=== PATIENT | male | born 1945 | race Caucasian/White ===

== ENCOUNTER 2021-04-20 13:13 | Inpatient (IN) | payer MEDICARE ==
[~2021-04-20] VITALS: Ht 170.2 cm; Wt 74.2 kg
[~2021-04-20 13:13] MED LIST: AEROECLIPSE II1 EACH NEB; ALDACTONE25 M1 PO; COREG12.5 MG PO; COUMADIN2.5 MG PO; DUONEB 2.5-0.5M1 AMP NEB; FLOMAX0.4 MG PO; GLUCOPHAGE500 MG PO; HCTZ25 MG PO; K-DUR20 MEQ PO; LACTINEX1 EACH PO; LEVAQUIN500 MG PO; NOVOLOG VI100 UNIT/1 SQ; PREDNISONE10 MG PO; PRINIVIL20 MG PO; PROTONIX 40MG T40 MG PO; ZOCOR20 MG PO
[2021-04-20 14:04] LABS: BASOPHIL 0.3 % (0-2); EOSINOPHIL 0.5 % (0-7); HCT 41.5 % (42.0-52.0); HGB 12.2 g/dl (13.2-18.0); LYMPHOCYTE 15.2 % (15-48); MCH 30.4 pg (25.0-31.0); MCHC 29.4 g/dL (32.0-36.0); MCV 103.5 fL (78.0-100.0); MONOCYTE 10.7 % (0-12); MPV 9.2 fL (6.0-9.5); NEUTROPHIL 71.5 % (41-80); NRBC 0.5; PLT 107 K/uL (150-400); RBC 4.01 M/uL (4.70-6.00); RDW 15.7 % (11.5-14.0); WBC 6.1 K/uL (4.0-10.5)
[2021-04-20 14:23] LABS: ALBUMIN 3.7 g/dL (3.4-5.0); BILIRUBIN - TOTAL 0.9 mg/dL (0.2-1.0); CREATININE 1.8 mg/dL (0.67-1.17); GLOBULIN (CALCULATION) 4.2 g/dL; POTASSIUM 5.1 mmol/L (3.5-5.1); TOTAL PROTEIN 7.9 g/dL (6.4-8.2)
[2021-04-20 14:51] LABS: BILIRUBIN NEGATIVE (NEGATIVE); BLOOD TRACE-INTACT Ery/uL (NEGATIVE); CLARITY CLEAR (CLEAR); COLOR YELLOW (YELLOW); GLUCOSE (U) NORMAL (NORMAL); LEUKOCYTES NEGATIVE Leu/uL (NEGATIVE); NITRITE NEGATIVE (NEGATIVE); PROTEIN 2+ mg/dL (NEGATIVE); SPECIFIC GRAVITY >=1.030 (1.001-1.030); UROBILINOGEN 0.2 mg/dL (0.2-1.0)
[2021-04-20 15:07] LABS: SQUAMOUS EPITHELIAL CELLS RARE
[2021-04-20] MEDS ORDERED: NOVOLOG VI100 UNIT/1 SC (17:21)
[2021-04-20] MEDS ORDERED: LASIX40 MG PO (17:23)
[2021-04-20] MEDS ORDERED: CLARITIN10 MG PO (17:24)
[2021-04-20] MEDS ORDERED: FINASTERIDE5 MG PO (17:24)
[2021-04-20] MEDS ORDERED: ELIQUIS2.5 MG PO (17:24)
[2021-04-20] MEDS ORDERED: LIPITOR20 MG PO (17:25)
[2021-04-20] MEDS ORDERED: ASPIRIN81 MG PO (17:25)
[2021-04-20] MEDS ORDERED: NEURONTIN300 MG PO (17:26)
--- NOTE | 2021-04-20 18:29 | NUR ---
PT ARRIVED TO FLOOR AT 1630 PT VITAL SIGNS ARE STABLE ANTIBIOTICS WERE CONTINUED SEDATION CONTINUED DIPRIVAN 20MCG FENTANYL 100MCG RUNNING THROUGH A 20 IN RAC CEFEPINE FINISHED RUNNING THROUGH A 20 IN R WRIST VANCOMYCIN STARTED IN 20 IN R WRIST 1730 A LINE WAS PLACED BY MD DE SOUZA BLOOD PRESSURE STABLE 1800 PORT IN LEFT CHEST WAS ACCESSED WITH BLOOD RETURN. DIPRIVAN AND FENTANYL SWITCHED TO PORT ACCESS. PT GIVEN PROTONIX 40MG AND 5000 UNITS OF HEPARIN
[2021-04-21 04:26] LABS: BASOPHIL 0 % (0-2); EOSINOPHIL 0 % (0-7); HCT 32.7 % (42.0-52.0); HGB 10.3 g/dl (13.2-18.0); LYMPHOCYTE 14.5 % (15-48); MCH 30.3 pg (25.0-31.0); MCHC 31.5 g/dL (32.0-36.0); MONOCYTE 8.2 % (0-12); MPV 8.9 fL (6.0-9.5); NEUTROPHIL 76.6 % (41-80); NRBC 0.7; PLT 120 K/uL (150-400); RDW 15.3 % (11.5-14.0); WBC 4.3 K/uL (4.0-10.5)
[2021-04-21 04:30] LABS: MCV 96.2 fL (78.0-100.0)
[2021-04-21 04:39] LABS: BUN/CREAT RATIO (CALC) 18.6 RATIO; CREATININE 1.72 mg/dL (0.67-1.17); MAGNESIUM 1.9 mg/dL (1.8-2.4); POTASSIUM 4.4 mmol/L (3.5-5.1)
[2021-04-22 04:39] LABS: BASOPHIL 0 % (0-2); EOSINOPHIL 0 % (0-7); HCT 33.7 % (42.0-52.0); HGB 10.3 g/dl (13.2-18.0); LYMPHOCYTE 8.8 % (15-48); MCH 30.2 pg (25.0-31.0); MCHC 30.6 g/dL (32.0-36.0); MCV 98.8 fL (78.0-100.0); MONOCYTE 5.1 % (0-12); MPV 9.6 fL (6.0-9.5); NEUTROPHIL 85.6 % (41-80); NRBC 0; RBC 3.41 M/uL (4.70-6.00); RDW 15.7 % (11.5-14.0); WBC 5.7 K/uL (4.0-10.5)
[2021-04-22 04:41] LABS: PLT 120 K/uL (150-400)
[2021-04-22 04:51] LABS: BUN/CREAT RATIO (CALC) 22.5 RATIO; CREATININE 1.82 mg/dL (0.67-1.17); MAGNESIUM 2.3 mg/dL (1.8-2.4); PHOSPHORUS 4.2 mg/dL (2.6-4.7); POTASSIUM 5.1 mmol/L (3.5-5.1)
--- NOTE | 2021-04-22 08:38 | NUR ---
NOTIFIED DR MOSHER THAT PT WAS AWAKE AND FOLLOWING COMMANDS. HE LOOKED AT [facility] AND SAID TO DECREASE FIO2 TO 60% FROM 70% ON THE VENTILATOR. WILL CONTINUE TO MONITOR
--- NOTE | 2021-04-22 15:23 | NUR ---
04/22/2021 Contact telephone # were retrieved from Mr. Chicas's billfold, witnessed by Security Martine. Copy placed in the medical record. Frantz Chicas, brother, was reached at [phone]. Frantz Chicas reported the following: Mr. Chicas lives alone. He had one daughter who has pasted away. Mr. Chicas has 3 sisters, Kritsen Morris, Amelie, Shyla Day, and one brother, Frantz Chicas. Mr. Chicas has home 02, otherwise he was independent at home. Mr. Frantz Chicas was transferred to the Nursing Unit. - Report given to Dr. Valdez.
[2021-04-23 06:02] LABS: BASOPHIL 0 % (0-2); EOSINOPHIL 0 % (0-7); HCT 33.5 % (42.0-52.0); HGB 10.2 g/dl (13.2-18.0); LYMPHOCYTE 8.7 % (15-48); MCHC 30.4 g/dL (32.0-36.0); MCV 98.5 fL (78.0-100.0); MONOCYTE 8.2 % (0-12); MPV 9.4 fL (6.0-9.5); NEUTROPHIL 82.6 % (41-80); NRBC 0; PLT 121 K/uL (150-400); RDW 15.7 % (11.5-14.0); WBC 5.5 K/uL (4.0-10.5)
[2021-04-23 06:25] LABS: BUN/CREAT RATIO (CALC) 29.6 RATIO; CREATININE 1.62 mg/dL (0.67-1.17); POTASSIUM 4.9 mmol/L (3.5-5.1)
[2021-04-24 04:58] LABS: BASOPHIL 0 % (0-2); EOSINOPHIL 0 % (0-7); HGB 10.1 g/dl (13.2-18.0); LYMPHOCYTE 9.6 % (15-48); MCH 30.3 pg (25.0-31.0); MCHC 31.6 g/dL (32.0-36.0); MCV 96.1 fL (78.0-100.0); MONOCYTE 8.1 % (0-12); NEUTROPHIL 81.4 % (41-80); NRBC 0; PLT 115 K/uL (150-400); RBC 3.33 M/uL (4.70-6.00); RDW 15.5 % (11.5-14.0); WBC 5.4 K/uL (4.0-10.5)
[2021-04-24 05:21] LABS: BUN/CREAT RATIO (CALC) 34.3 RATIO; CREATININE 1.43 mg/dL (0.67-1.17); POTASSIUM 4.8 mmol/L (3.5-5.1)
--- NOTE | 2021-04-24 13:05 | NUR ---
HR dropped to 30 multiple times when staying at the desk. Dr. Valdez called and notified, Dr. Valdez stated he was going to place a Cardiology Consult. Dr. Valdez stated to continue to monitor the patient. BP at this time stable at 127/55 per a-line. Kiera christie RN notified of this entry.
[2021-04-25 05:29] LABS: BASOPHIL 0 % (0-2); EOSINOPHIL 0 % (0-7); HCT 32.7 % (42.0-52.0); HGB 10.1 g/dl (13.2-18.0); LYMPHOCYTE 10.7 % (15-48); MCH 29.8 pg (25.0-31.0); MCHC 30.9 g/dL (32.0-36.0); MCV 96.5 fL (78.0-100.0); MONOCYTE 7.8 % (0-12); MPV 9.8 fL (6.0-9.5); NEUTROPHIL 81.1 % (41-80); NRBC 0; PLT 113 K/uL (150-400); RBC 3.39 M/uL (4.70-6.00); RDW 15.2 % (11.5-14.0); WBC 4.6 K/uL (4.0-10.5)
[2021-04-25 06:31] LABS: BUN/CREAT RATIO (CALC) 41.2 RATIO; CREATININE 1.36 mg/dL (0.67-1.17); POTASSIUM 5.1 mmol/L (3.5-5.1)
[2021-04-26 08:10] LABS: HCT 32.7 % (42.0-52.0); HGB 10.5 g/dl (13.2-18.0); MCH 30.7 pg (25.0-31.0); MCHC 32.1 g/dL (32.0-36.0); MCV 95.6 fL (78.0-100.0); MPV 10.3 fL (6.0-9.5); RBC 3.42 M/uL (4.70-6.00); RDW 14.8 % (11.5-14.0); WBC 4.6 K/uL (4.0-10.5)
[2021-04-26 08:23] LABS: BUN/CREAT RATIO (CALC) 42.1 RATIO; CREATININE 1.33 mg/dL (0.67-1.17); POTASSIUM 5.5 mmol/L (3.5-5.1)
[2021-04-27 05:52] LABS: BASOPHIL 0 % (0-2); EOSINOPHIL 0.2 % (0-7); HCT 34.5 % (42.0-52.0); LYMPHOCYTE 8.1 % (15-48); MCH 30.3 pg (25.0-31.0); MCHC 31.9 g/dL (32.0-36.0); MONOCYTE 10.3 % (0-12); NEUTROPHIL 81.1 % (41-80); NRBC 0; PLT 136 K/uL (150-400); RBC 3.63 M/uL (4.70-6.00); RDW 14.7 % (11.5-14.0); WBC 6.4 K/uL (4.0-10.5)
[2021-04-27 05:56] LABS: BUN/CREAT RATIO (CALC) 41.9 RATIO; CREATININE 1.29 mg/dL (0.67-1.17); MAGNESIUM 2.4 mg/dL (1.8-2.4); POTASSIUM 5.3 mmol/L (3.5-5.1)
[2021-04-28 05:38] LABS: BASOPHIL 0 % (0-2); EOSINOPHIL 0.2 % (0-7); HCT 34.6 % (42.0-52.0); LYMPHOCYTE 10.6 % (15-48); MCH 30.2 pg (25.0-31.0); MCHC 31.8 g/dL (32.0-36.0); MCV 95.1 fL (78.0-100.0); MONOCYTE 9.5 % (0-12); NEUTROPHIL 79.2 % (41-80); NRBC 0; PLT 142 K/uL (150-400); RBC 3.64 M/uL (4.70-6.00); RDW 14.6 % (11.5-14.0); WBC 5.6 K/uL (4.0-10.5)
[2021-04-28 05:53] LABS: BUN/CREAT RATIO (CALC) 41.3 RATIO; CREATININE 1.43 mg/dL (0.67-1.17); POTASSIUM 5.6 mmol/L (3.5-5.1)
--- NOTE | 2021-04-28 13:13 | NUR ---
PT COMPLAINS OF PAIN FROM RECTAL TUBE, SPOKE TO MD CUEVAS AND HE STATES IT IS OKAY FOR FECAL MANAGMENT SYSTEM TO BE REMOVED. REMOVED AT 1000 DIPRIVAN AND FENTANYL WERE D/C AT 1105 FOR PATIENT EXTUBATION PT EXTUBATED AT 1130 OG TUBE REMOVED AT THIS TIME. RESTRAINTS ALSO REMOVED AT THIS TIME. SPOKE TO MD CUEVAS ABOUT REORDERING HOME MEDS, TYLENOL AND ZOFRAN, ALSO ASKED FOR A CLEAR LIQUID DIET ORDER.
[2021-04-29 04:35] LABS: HCT 33.7 % (42.0-52.0); HGB 10.4 g/dl (13.2-18.0); MCH 29.9 pg (25.0-31.0); MCHC 30.9 g/dL (32.0-36.0); MCV 96.8 fL (78.0-100.0); MPV 10.3 fL (6.0-9.5); RBC 3.48 M/uL (4.70-6.00); RDW 14.8 % (11.5-14.0); WBC 4.9 K/uL (4.0-10.5)
[2021-04-29 04:42] LABS: BUN/CREAT RATIO (CALC) 40.7 RATIO; CREATININE 1.35 mg/dL (0.67-1.17)
[2021-04-29 04:51] LABS: POTASSIUM 5.6 mmol/L (3.5-5.1)
--- NOTE | 2021-04-30 15:01 | NUR ---
04/30/21 Mr. Chicas reports to live alone. He has home 02 at 3L and portable tanks that are operable. A HHR was made to [facility] per patient choice. [facility] at [phone] if patient discharges over the weekend. - A rw was ordered from [facility]. - Mr. Chicas was educated to LTADD services and emergency alert systems. He states that he cannot afford an emergency alert system.
[2021-05-01 06:52] LABS: HCT 33.3 % (42.0-52.0); HGB 10.6 g/dl (13.2-18.0); MCH 29.9 pg (25.0-31.0); MCHC 31.8 g/dL (32.0-36.0); MCV 93.8 fL (78.0-100.0); MPV 9.5 fL (6.0-9.5); RBC 3.55 M/uL (4.70-6.00); RDW 14.1 % (11.5-14.0); WBC 4.9 K/uL (4.0-10.5)
[2021-05-01 07:11] LABS: BUN/CREAT RATIO (CALC) 34.5 RATIO; CREATININE 1.39 mg/dL (0.67-1.17); POTASSIUM 4.5 mmol/L (3.5-5.1)
[2021-05-01] MEDS ORDERED: LEVAQUIN750 MG PO (10:03)
[2021-05-01] MEDS ORDERED: PREDNISONE 20MG20 MG PO (10:06)
[2021-05-01] MEDS ORDERED: DUONEB 2.5-0.5M1 AMP INH (10:06)
[2021-05-01] MEDS ORDERED: ADVAIR 500-501 EACH INH (10:08)
[2021-05-01] MEDS ORDERED: SPIRIVA RESPIMAT4 G1 INH (10:08)
--- NOTE | 2021-05-01 12:00 | NUR ---
1018 HEARD SOUND FROM ROOM. WENT INTO PT ROOM PT FOUND ON FLOOR. PT STATES "IM ALRIGHT, SORRY I DIDN'T CALL FOR YOU LIKE YOU TOLD ME TO" PT ASSESSED WITH NOT SIGN OF INJURY, PT DENIES ANY PAIN. DEBORA RN , ANGEL RN HELPED ASSIST PT TO CHAIR. DR. DE SOUZA NOTIFIED OF PT FALL. DISCUSSED WITH PT AGAIN ABOUT NEED FOR INPATIENT REHAB. PT REFUSED INPATIENT REHAB. WANT TO DO AT HOME REHAB 1040 YOUNG AND MYSELF DISCUSSED SNIF, PT AGAIN REFUSED INPATIENT REHAB ENCOURAGED PT TO HAVE HELP 24/ AT HOME UNTIL STRONGER. PT STATES BROTHER WILL BE THERE AROUND CLOCK ALONG WITH HIS SISTER.
--- NOTE | 2021-05-01 16:44 | NUR ---
05/01/21 Mr. Chicas had a fall prior to discharge. He again declined SNF. Family called several hours after discharge to report patient had falled and needs placement. Family called EMS and patient returned to the ED. Patient was placed at [facility] per his agreement. Report was given to Dr. Ozuna and Pushpa, ED RN.
== END 2021-05-01 11:35 | disposition home health service (06) | DRG 207 ==
LOC: FER 13:13 → FICU 15:10 → FTCU 04-29 15:51
PROVIDERS: Hospitalist; Internal Medicine; ADMIT Allergy & Immunology Allergy
PROC: 0BH17EZ Insertion of Endotracheal Airway into Trachea, Via Natural or Artificial Opening (ICD-10-PCS; principal; 2021-04-20)
PROC: 5A1955Z Respiratory Ventilation, Greater than 96 Consecutive Hours (ICD-10-PCS; 2021-04-20)
DX: J15.8 Pneumonia due to other specified bacteria (principal); J80 Acute respiratory distress syndrome; J44.0 Chronic obstructive pulmonary disease with (acute) lower respiratory infection; N17.9 Acute kidney failure, unspecified; E87.0 Hyperosmolality and hypernatremia; E87.3 Alkalosis; J44.1 Chronic obstructive pulmonary disease with (acute) exacerbation; I13.0 Hypertensive heart and chronic kidney disease with heart failure and stage 1 through stage 4 chronic kidney disease, or unspecified chronic kidney disease; Z20.822 Contact with and (suspected) exposure to COVID-19; N18.30 Chronic kidney disease, stage 3 unspecified; E11.22 Type 2 diabetes mellitus with diabetic chronic kidney disease; N18.9 Chronic kidney disease, unspecified; E86.0 Dehydration; E66.01 Morbid (severe) obesity due to excess calories; I50.9 Heart failure, unspecified; D53.9 Nutritional anemia, unspecified; Z87.01 Personal history of pneumonia (recurrent); Z88.0 Allergy status to penicillin; Z85.51 Personal history of malignant neoplasm of bladder; Z86.718 Personal history of other venous thrombosis and embolism; Z90.49 Acquired absence of other specified parts of digestive tract; Z98.890 Other specified postprocedural states; Z68.31 Body mass index [BMI] 31.0-31.9, adult
CPT/HCPCS: 31500; 36415; 36600; 71045; 80048; 80053; 80202; 81001; 82803; 82962; 83690; 83735; 84100; 84145; 84478; 84484; 85025; 87040; 87070; 87075; 87077; 87186; 87205; 87449; 92950; 93005; 94002; 94640; 94660; 94667; 94668; 94762; 96374; 97163; 97166; 97530-GP; 97535; C9113; J0330; J0456; J0692; J0713; J1100; J1642; J1644; J1650; J1815; J1940; J1956; J2405; J2704; J2920; J3010; J3370; J7030; J7040; J7050; U0002

== ENCOUNTER 2021-05-01 14:50 | Emergency (ER) | payer MEDICARE ==
[~2021-05-01 14:50] MED LIST changes: +ADVAIR 500-501 EACH INH; +ASPIRIN81 MG PO; +CLARITIN10 MG PO; +DUONEB 2.5-0.5M1 AMP INH; +ELIQUIS2.5 MG PO; +FINASTERIDE5 MG PO; +LASIX40 MG PO; +LEVAQUIN750 MG PO; +LIPITOR20 MG PO; +NEURONTIN300 MG PO; +NOVOLOG VI100 UNIT/1 SC; +PREDNISONE 20MG20 MG PO; +SPIRIVA RESPIMAT4 G1 INH
== END 2021-05-01 17:55 ==
LOC: FER 14:50
DX: M62.50 Muscle wasting and atrophy, not elsewhere classified, unspecified site (principal); J18.9 Pneumonia, unspecified organism; I50.1 Left ventricular failure, unspecified; J96.10 Chronic respiratory failure, unspecified whether with hypoxia or hypercapnia; E11.22 Type 2 diabetes mellitus with diabetic chronic kidney disease; N18.9 Chronic kidney disease, unspecified; Z20.822 Contact with and (suspected) exposure to COVID-19; Z88.8 Allergy status to other drugs, medicaments and biological substances; Z91.040 Latex allergy status
CPT/HCPCS: 99284; U0002